=== PATIENT | male | born 1945 | race Caucasian/White ===

== ENCOUNTER → 2016-08-03 | Day surgery (SDC) | payer MEDICARE, BC ==
[~2016-08-03] MED LIST: ISOS30TA17 PO; LACTATED RINGER'S 1000 ML INJ 1,000 ML ONE; MIRA0.25 PO; MIRA1TAB PO; PROPOFOL 200 MG/20 ML AMP IV ONE; PROT40TA PO; RAPA8CAP PO; VESI5TAB PO
--- NOTE | 2016-08-03 09:32 | GIPROC ---
[facility] [place] [address] [facility], [address] COLONOSCOPY PROCEDURE REPORT EXAM DATE: 08/03/2016 PATIENT NAME: Alexis Wallace MR #: [id number] BIRTHDATE: 1945 ENDOSCOPIST: Royer Coppola MD ORDER #: [id number] PLASTIC PRESS MOLDER: Lorin Crystal RN STATUS: outpatient INDICATIONS: The patient is a 70 yr old male here for a colonoscopy due to average risk patient for colon cancer PROCEDURE PERFORMED: Colonoscopy, screening MEDICATIONS: None, Per Anesthesia, None, and Per Anesthesia. PREP QUALITY: excellent ESTIMATED BLOOD LOSS: None CONSENT: The patient understands the risks and benefits of the procedure and understands that these risks include, but are not limited to: sedation, allergic reaction, infection, perforation and/or bleeding. Alternative means of evaluation and treatment include, among others: physical exam, x-rays, and/or surgical intervention. The patient elects to proceed with this endoscopic procedure. medical equipment was checked for proper function. Hand hygiene and appropriate measures for infection prevention was taken. After the risks, benefits and alternatives of the procedure were thoroughly explained, Informed consent was verified, confirmed and timeout was successfully executed by the treatment team. A digital exam revealed no abnormalities of the rectum The EC-[id number] ([id number]) endoscope was introduced through the anus and advanced to the cecum, which was identified by both the appendix and ileocecal valve. The instrument was then slowly withdrawn as the colon was fully examined. COLON FINDINGS: The colonic mucosa appeared normal. Retroflexed views revealed no abnormalities The scope was then completely withdrawn from the patient and the procedure terminated. PROCEDURE WITHDRAWAL TIME:7.2minutes ADVERSE EVENTS: There were no complications. IMPRESSIONS: 1. The colonic mucosa appeared normal 2. Retroflexed views revealed no abnormalities 3. Revealed no abnormalities of the rectum RECOMMENDATIONS: 1. High fiber diet 2. Yearly hemoccult 3. Follow-up: GI Clinic PRN RECALL: Return 10 years Colonoscopy Royer Coppola MD eSigned: Royer Coppola MD 08/03/2016 9:31 AM cc: Eagle Johnson M.D and Ngozi Lacey [facility] [place]
--- NOTE | 2016-08-03 09:34 | GIPROC ---
[facility] [address] [facility], [address] EGD PROCEDURE REPORT EXAM DATE: 08/03/2016 PATIENT NAME: Alexis Wallace MR #: [id number] BIRTHDATE: 1945 ATTENDING: Royer Coppola MD ORDER #: [id number] RAW SHELLFISH PREPARER: Lorin Crystal RN STATUS: outpatient INDICATIONS: The patient is a 70 yr old male here for an EGD due to history of esophageal reflux PROCEDURE PERFORMED: EGD w/ biopsy MEDICATIONS: None, Per Anesthesia, None, and Per Anesthesia. TOPICAL ANESTHETIC: CONSENT: The patient understands the risks and benefits of the procedure and understands that these risks include, but are not limited to: sedation, allergic reaction, infection, perforation and/or bleeding. Alternative means of evaluation and treatment include, among others: physical exam, x-rays, and/or surgical intervention. The patient elects to proceed with this endoscopic procedure. medical equipment was checked for proper function. Hand hygiene and appropriate measures for infection prevention was taken. After the risks, benefits and alternatives of the procedure were thoroughly explained, Informed consent was verified, confirmed and timeout was successfully executed by the treatment team. The patient was anesthetized with topical anesthesia and the EC-[id number] ([id number]) endoscope was introduced through the mouth and advanced to the second portion of the duodenum. Retroflexed views revealed no abnormalities The gastroscope was then slowly withdrawn and removed. ESOPHAGUS: The mucosa of the esophagus appeared normal. STOMACH: The mucosa of the stomach appeared normal. DUODENUM: The duodenal mucosa appeared normal. ADVERSE EVENTS: There were no complications. IMPRESSIONS: 1. The esophagus appeared normal 2. The mucosa of the stomach appeared normal 3. Normal duodenal mucosa 4. Retroflexed views revealed no abnormalities RECOMMENDATIONS: Anti-reflux regimen PATIENT CONDITION: stable DISPOSITION: Home REPEAT EXAM: Royer Coppola MD eSigned: Royer Coppola MD 08/03/2016 9:33 AM cc: Eagle Lacey [facility]
== END | disposition home or self-care (01) ==
LOC: ESDC 07:30
PROVIDERS: ATTEND Internal Medicine Gastroenterology
DX: Z12.11 Encounter for screening for malignant neoplasm of colon (principal); K21.9 Gastro-esophageal reflux disease without esophagitis
CPT/HCPCS: 00740; 00810; 43239; 45378; J3010; J7120